=== PATIENT | male | born 1965 | race Caucasian/White ===

== ENCOUNTER → 2020-03-02 | Outpatient (CLI) | payer OTHER ==
--- NOTE | 2020-03-02 15:14 | RAD ---
XR HAND_RIGHT 3 VIEWS, XR RT WRIST 3VIEWS DATE: 03/02/2020 12:39 PM INDICATION: HAND/WRIST PAIN COMPARISON: None. FINDINGS: Bones: There is no evidence of acute fracture or dislocation. Joints: Mild degenerative changes of the DIP joints. No periarticular calcifications or erosions. Miscellaneous: None. IMPRESSION: 1. No acute osseous abnormality. 2. Mild degenerative changes. Electronically signed by: Jarrett Germain MD (03/02/2020 3:12 PM) [id number]
== END ==
LOC: DXRAD 12:22
PROVIDERS: ATTEND Nurse Practitioner Family
DX: M19.031 Primary osteoarthritis, right wrist (principal)
CPT/HCPCS: 73110; 73130

== ENCOUNTER 2020-03-07 09:04 | Emergency (ER) | payer BC, OTHER ==
[~2020-03-07] VITALS: Ht 177.8 cm; Wt 137.4 kg
[2020-03-07] MEDS ORDERED: IV NORMAL SALINE 1,000ML 1,000 ML IV ONE (09:30)
[2020-03-07] MEDS ORDERED: FAMOTIDINE 20 MG/2 ML VIAL IVP ONE (09:30)
[2020-03-07 09:49] LABS: BASO % 1 % (0-3); EOS # 0.1 x10^3/uL (0.0-0.7); EOS % 1 % (0-3); HEMOGLOBIN 15.6 g/dL (13.0-17.5); LYMPH # 1.1 x10^3/uL (1.0-4.8); LYMPH % 19 % (24-48); MEAN CORPUSCULAR HEMOGLOBIN 31 pg (25-35); MEAN CORPUSCULAR HGB CONC 34 g/dL (31-37); MEAN CORPUSCULAR VOLUME 90 fL (79-100); MONO # 0.5 x10^3/uL (0.0-1.1); MONO % 8 % (0-9); NEUT # 4.2 x10^3uL (1.8-7.7); NEUT % 71 % (31-73); PLATELET COUNT 230 x10^3/uL (140-400); RED BLOOD COUNT 5.09 x10^6/uL (4.30-5.70); WHITE BLOOD COUNT 5.9 x10^3/uL (4.0-11.0)
--- NOTE | 2020-03-07 09:56 | RAD ---
Exam performed: CT scan of the head without contrast. Date of Service: 03/07/2020. Comparison: None available. Clinical History: Elevated blood pressure, headache. Technique: Helical acquisitions are obtained from the foramen magnum to the vertex without intravenou s administration of contrast. Findings: The ventricles are midline without evidence of dilatation. Normal abreu-white differentiation is maint ained. There is no extra axial fluid collection, intraparenchymal hemorrhage or mass lesion. The vi sualized portions of the orbits, paranasal sinuses and the mastoid air cells appear clear. The carter rium is intact. Impression: 1. No acute intracranial process detected. PQRS Compliance Statement: One or more of the following individualized dose reduction techniques were utilized for this examinat ion: 1. Automated exposure control 2. Adjustment of the mA and/or kV according to patient size 3. Use of iterative reconstruction technique End impression Exam performed: One view chest. Indication: Reason: chest discomfort / Spl. Instructions: / History: Date of Service: 03/07/2020 9:42 AM Comparison: None available. Single AP upright portable view chest findings: Moderate cardiomegaly. Pulmonary vascularity is unremarkable. No acute infiltrates, effusion or pneum othorax is detected. The bony structures are normal. Impression: Moderate cardiomegaly, otherwise unremarkable exam. Electronically signed by: Dian Saldaña MD (03/07/2020 9:53 AM) [facility]
[2020-03-07 09:58] LABS: ANION GAP 8 (6-14); BLOOD UREA NITROGEN 16 mg/dL (8-26); BUN/CREATININE RATIO 20 (6-20); CALCIUM 9.2 mg/dL (8.5-10.1); CARBON DIOXIDE 26 mmol/L (21-32); CHLORIDE 107 mmol/L (98-107); CREATININE 0.8 mg/dL (0.7-1.3); GFR 100.4; GLUCOSE 157 mg/dL (70-99); POTASSIUM 4.3 mmol/L (3.5-5.1); SODIUM 141 mmol/L (136-145)
[2020-03-07] MEDS ORDERED: FAMO-63 PO (10:14)
[2020-03-07 10:15] LABS: ALBUMIN 3.6 g/dL (3.4-5.0); ALBUMIN/GLOBULIN RATIO 1.1 (1.0-1.7); ALK PHOS 83 U/L (46-116); ALT (SGPT) 32 U/L (16-63); AST (SGOT) 20 U/L (15-37); LIPASE 64 U/L (73-393); MAGNESIUM 1.9 mg/dL (1.8-2.4); TOTAL BILIRUBIN 0.4 mg/dL (0.2-1.0)
--- NOTE | 2020-03-07 10:18 | PHYS DOC ---
Past History Past Medical History: Other Additional Past Medical Histor: Erectile dysfunction Past Surgical History: Tonsillectomy, Other Additional Past Surgical Histo: vasectomy Smoking: Non-smoker Alcohol Use: None Drug Use: None General Adult EDM: Chief Complaint: HYPERTENSION HPI: HPI: 54-year-old male presents with report of elevated blood pressure on [employer] evaluation of his right hand today. Reports blood pressure got up to 240s over 120s. Patient was instructed by the [employer] physician training assistant to present directly to the ER for further evaluation. Patient had reported some intermittent chest discomfort which was "burning ". Patient thought this was secondary to gastritis as it has been relieved with Tums. Denies history of hypertension. Reports he is currently not taking any medication for it. Patient does report upon arrival to the ER he did develop a right-sided headache. Denies trauma. Denies known exposure to COVID-19. Review of Systems: Review of Systems: Constitutional: Denies fever or chills Eyes: Denies redness or eye pain HENT: Denies nasal congestion or sore throat Respiratory: Denies cough or shortness of breath Cardiovascular: Reports intermittent chest burning sensation; denies chest pain pain or palpitations GI: Denies nausea or vomiting : Denies dysuria or hematuria Musculoskeletal: Denies back pain or joint pain Integument: Denies rash or skin lesions Neurologic: Reports headache; denies focal weakness or sensory changes Complete systems were reviewed and found to be within normal limits, except as documented in this note. Current Medications: Current Meds: Current Medications Medications (Trade) Dose Ordered Sig/Estrada Start Time Stop Time Status Last Admin Dose Admin Famotidine (Pepcid Vial) 20 mg 1X ONCE 03/07/20 09:30 03/07/20 09:35 DC 03/07/20 09:51 20 MG Sodium Chloride 1,000 ml @ 1,000 mls/hr 1X ONCE 03/07/20 09:30 03/07/20 10:29 03/07/20 09:51 1,000 MLS/HR Allergies: Allergies: Allergies Coded Allergies Type Severity Reaction Last Updated Verified Penicillins Allergy Mild rash 03/07/20 Yes Physical Exam: PE: Constitutional: Well developed, well nourished, no acute distress, non-toxic appearance HENT: Normocephalic, atraumatic Eyes: PERRL, EOMI, conjunctiva normal, no discharge Neck: Normal range of motion, no tenderness, supple Lungs & Thorax: No respiratory distress, equal chest rise and fall Abdomen: Soft, no tenderness Skin: Warm, dry, no erythema, no rash Back: No tenderness, no CVA tenderness Extremities: No tenderness, ROM intact, no edema Neurologic: Alert and oriented X 3, normal motor function, normal sensory function, no focal deficits noted Psychologic: Affect normal, judgment normal Current Patient Data: Labs: Laboratory Tests Test 03/07/20 09:35 White Blood Count 5.9 x10^3/uL (4.0-11.0) Red Blood Count 5.09 x10^6/uL (4.30-5.70) Hemoglobin 15.6 g/dL (13.0-17.5) Hematocrit 46.0 % (39.0-53.0) Mean Corpuscular Volume 90 fL (79-100) Mean Corpuscular Hemoglobin 31 pg (25-35) Mean Corpuscular Hemoglobin Concent 34 g/dL (31-37) Red Cell Distribution Width 13.0 % (11.5-14.5) Platelet Count 230 x10^3/uL (140-400) Neutrophils (%) (Auto) 71 % (31-73) Lymphocytes (%) (Auto) 19 % (24-48) L Monocytes (%) (Auto) 8 % (0-9) Eosinophils (%) (Auto) 1 % (0-3) Basophils (%) (Auto) 1 % (0-3) Neutrophils # (Auto) 4.2 x10^3uL (1.8-7.7) Lymphocytes # (Auto) 1.1 x10^3/uL (1.0-4.8) Monocytes # (Auto) 0.5 x10^3/uL (0.0-1.1) Eosinophils # (Auto) 0.1 x10^3/uL (0.0-0.7) Basophils # (Auto) 0.0 x10^3/uL (0.0-0.2) Sodium Level 141 mmol/L (136-145) Potassium Level 4.3 mmol/L (3.5-5.1) Chloride Level 107 mmol/L (98-107) Carbon Dioxide Level 26 mmol/L (21-32) Anion Gap 8 (6-14) Blood Urea Nitrogen 16 mg/dL (8-26) Creatinine 0.8 mg/dL (0.7-1.3) Estimated GFR (Cockcroft-Gault) 100.4 BUN/Creatinine Ratio 20 (6-20) Glucose Level 157 mg/dL (70-99) H Calcium Level 9.2 mg/dL (8.5-10.1) Magnesium Level Pending Total Bilirubin Pending Aspartate Amino Transferase (AST) Pending Alanine Aminotransferase (ALT) Pending Alkaline Phosphatase Pending Creatine Kinase Pending Creatine Kinase MB (Mass) Pending Creatine Kinase MB Relative Index Pending Troponin I Quantitative < 0.017 ng/mL (0-0.055) EU-Cdt-N-Type Natriuretic Peptide Pending Total Protein Pending Albumin Pending Albumin/Globulin Ratio Pending Lipase Pending Vital Signs: Vital Signs Date Time Temp Pulse Resp B/P (MAP) Pulse Ox O2 Delivery O2 Flow Rate FiO2 03/07/20 09:30 98.0 77 18 155/95 (115) 96 Room Air EKG: EKG: @0947 NSR at 68bpm, NO ST elevation, QRS 98ms, QT/QTc 386/411ms Radiology/Procedures: Radiology/Procedures: PROCEDURE: PORTABLE CHEST 1V Exam performed: One view chest. Indication: Reason: chest discomfort / Spl. Instructions: / History: Date of Service: 03/07/2020 9:42 AM Comparison: None available. Single AP upright portable view chest findings: Moderate cardiomegaly. Pulmonary vascularity is unremarkable. No acute infiltrates, effusion or pneumothorax is detected. The bony structures are normal. Impression: Moderate cardiomegaly, otherwise unremarkable exam. Electronically signed by: Dian Saldaña MD (03/07/2020 9:53 AM) [facility] PROCEDURE: CT HEAD WO CONTRAST Exam performed: CT scan of the head without contrast. Date of Service: 03/07/2020. Comparison: None available. Clinical History: Elevated blood pressure, headache. Technique: Helical acquisitions are obtained from the foramen magnum to the vertex without intravenous administration of contrast. Findings: The ventricles are midline without evidence of dilatation. Normal abreu-white differentiation is maintained. There is no extra axial fluid collection, intraparenchymal hemorrhage or mass lesion. The visualized portions of the orbits, paranasal sinuses and the mastoid air cells appear clear. The calvarium is intact. Impression: 1. No acute intracranial process detected. PQRS Compliance Statement: One or more of the following individualized dose reduction techniques were utilized for this examination: 1. Automated exposure control 2. Adjustment of the mA and/or kV according to patient size 3. Use of iterative reconstruction technique Course & Med Decision Making: Course & Med Decision Making Pertinent Labs and Imaging studies reviewed. (See chart for details) Patient presents with report of elevated blood pressure on [employer] evaluation earlier today. Blood pressure significantly improved upon arrival to the ER. Patient does report some right-sided headache and report of intermittent epigastric discomfort which he thought was secondary to gastritis. Patient neurologically intact. NIHSS 0. EKG stable. Labs obtained and posted to chart. CT head without acute process. Chest x-ray stable. Patient stable for discharge with outpatient follow-up with PCP. Discussed findings and plan with patient, who acknowledges understanding and agreement. Dragon Disclaimer: Luis Disclaimer: This electronic medical record was generated, in whole or in part, using a voice recognition dictation system. Departure Departure: Impression: Primary Impression: Hypertension Qualified Codes: I10 - Essential (primary) hypertension Disposition: 01 DC HOME SELF CARE/HOMELESS Condition: STABLE Referrals: HUNTER NASH (PCP) CHRISTI TORRES MD Patient Instructions: Gastritis, Adult, [id number], Hypertension, [id number]-[id number] Additional Instructions: Please follow closely with your doctor for further evaluation of your blood pressure. Scripts Famotidine (PEPCID) 20 Mg Tablet 1 TAB PO BID for Gastritis, #60 TAB Prov: OLEGARIO POZO DO 03/07/20 NIHSS - ED NIH Stroke Scale: NIH Stroke Scale Response (Comments) Value Level of Consciousness: 0 Alert/Responsive 0 LOC Questions: 0 Answers both correctly 0 LOC Commands: 0 Performs both tasks 0 Best Gaze: 0 Normal 0 Visual: 0 No visual loss 0 Facial Palsy: 0 Normal, symmetrical 0 Motor - Left Arm 0 No drift 0 Motor - Right Arm 0 No drift 0 Motor - Left Leg 0 No drift 0 Motor: Right Leg 0 No drift 0 Limb Ataxia: 0 Absent 0 Sensory: 0 No loss 0 Best Language: 0 Normal 0 Dysathria: 0 Normal 0 Extinction and Inattention: 0 Normal 0 Total 0 OLEGARIO POZO DO Mar 07, 2020 10:18
[2020-03-07 10:45] VITALS: BP 133/73
--- NOTE | 2020-03-07 14:01 | EKG ---
[address] [address] Test Date: 2020-03-07 Test Time: 09:47:39 Pat Name: ITZEL MARCIAL Department: Room: Gender: M Bacon Stringer: [id number] : 1965 Requested By: OLEGARIO POZO Order Number: [id number] Reading MD: Measurements Intervals [place] Rate: 68 P: 23 SD: 178 QRS: 45 QRSD: 98 T: 11 QT: 386 QTc: 411 Interpretive Statements SINUS RHYTHM NORMAL ECG RI6.02 No previous ECG available for comparison
== END 2020-03-07 10:55 | disposition home or self-care (01) ==
LOC: ER 09:04
DX: I10 Essential (primary) hypertension (principal); Z88.0 Allergy status to penicillin
CPT/HCPCS: 36415; 70450; 71045; 80053; 82553; 83690; 83735; 83880; 84484; 85025; 93005; 96361; 96374; 99285; J3490; J7030